=== PATIENT | male | born 1940 | race Caucasian/White ===

== ENCOUNTER 2016-11-27 09:02 | Day surgery (SDC) | payer OTHER ==
[2016-11-27] MEDS ORDERED: LACTATED RINGERS 1,000 ML IV ONE (10:17)
[2016-11-27] MEDS ORDERED: MIDAZOLAM 2 MG/2 ML VIAL IVP ONE (10:40)
[2016-11-27] MEDS ORDERED: fentaNYL 250 MCG/5 ML VIAL IVP ONE (10:40)
== END 2016-11-27 09:03 | disposition home or self-care (01) ==
PROC: 0DJD8ZZ Inspection of Lower Intestinal Tract, Via Natural or Artificial Opening Endoscopic (ICD-10-PCS; principal; 2016-11-27 10:15)
DX: Z12.11 Encounter for screening for malignant neoplasm of colon (principal); I10 Essential (primary) hypertension; R01.0 Benign and innocent cardiac murmurs; Z87.891 Personal history of nicotine dependence; K57.30 Diverticulosis of large intestine without perforation or abscess without bleeding; K64.8 Other hemorrhoids; Z86.010 Personal history of colon polyps
CPT/HCPCS: 45378; J3010; J7120

== ENCOUNTER 2018-01-25 13:45 | Outpatient (CLI) | payer OTHER ==
[2018-01-25 14:52] LABS: BASOPHILS % (AUTO) 0.6 %; EOSINOPHILS # (AUTO) 0.2 10^3/uL (0.0-0.7); EOSINOPHILS % (AUTO) 3.3 %; HGB - HEMOGLOBIN 11.3 g/dL (14.0-18.0); LYMPHOCYTES % (AUTO) 26.1 %; MEAN CORPUSCULAR HEMOGLOBIN 34.2 pg (27.0-31.0); MEAN CORPUSCULAR HGB CONC 34.5 g/dL (32.0-36.0); MEAN CORPUSCULAR VOLUME 99.3 fL (80.0-94.0); MEAN PLATELET VOLUME 6.9 fL (7.4-11.4); MONOCYTES # (AUTO) 0.7 10^3/uL (0.0-1.0); MONOCYTES % (AUTO) 9.8 %; NEUTROPHILS # (AUTO) 4.5 10^3/uL (1.5-6.6); NEUTROPHILS % (AUTO) 60.2 %; PLT - PLATELET COUNT 284 10^3/uL (130-450); RED CELL DISTRIBUTION WIDTH 14.1 % (12.0-15.0); WHITE BLOOD COUNT 7.5 x10^3/uL (4.8-10.8)
== END 2018-01-25 13:46 | disposition home or self-care (01) ==
LOC: LAB.R 13:45
PROVIDERS: ATTEND Family Medicine
DX: Z48.815 Encounter for surgical aftercare following surgery on the digestive system (principal)
CPT/HCPCS: 85025